=== PATIENT | male | born 1980 | race African-American/Black ===

== ENCOUNTER 2023-10-24 19:07 | Emergency (ER) | payer OTHER ==
[~2023-10-24] VITALS: Ht 172.7 cm; Wt 91.0 kg
[2023-10-24 19:11] VITALS: BP 148/100; PULSE 101; RESP 16; TEMP 98.4; O2SAT 99
== END 2023-10-24 22:55 | disposition left against medical advice (07) ==
LOC: ER 19:07
DX: R10.9 Unspecified abdominal pain (principal); Z53.21 Procedure and treatment not carried out due to patient leaving prior to being seen by health care provider
CPT/HCPCS: 99281